=== PATIENT | female | born 1945 | race Caucasian/White ===

== ENCOUNTER 2017-04-11 20:04 | Emergency (ER) | payer MEDICARE, OTHER ==
[2017-04-11 20:38] VITALS: RESP 15; TEMP 97.2; O2SAT 100
[2017-04-11 20:46] LABS: BASOPHILS % (AUTO) 1 % (0-3); EOSINOPHILS % (AUTO) 1 % (0-9); HEMATOCRIT 38 % (35-47); MEAN CORPUSCULAR HGB CONC 33.5 gm/dl (32.0-36.0); MEAN CORPUSCULAR VOLUME 93 fL (81-99); MONOCYTES % (AUTO) 5.4 % (0-12)
[2017-04-11 21:05] LABS: GLOM FILT RATE 42 mL/min (>60); SODIUM 137 mMol/L (136-145)
[2017-04-11 22:46] VITALS: BP 149/43; PULSE 58
== END 2017-04-11 22:30 | disposition home or self-care (01) | DRG 204 ==
LOC: ED 20:04
DX: R06.02 Shortness of breath (principal)
CPT/HCPCS: 36415; 80048; 84484; 85025; 85378; 93005; 99282; 99283